=== PATIENT | male | born 1985 | race African-American/Black ===

== ENCOUNTER 2024-12-06 06:34 | Emergency (ER) | payer OTHER ==
[~2024-12-06] VITALS: Ht 172.7 cm; Wt 63.5 kg
[2024-12-06 07:43] VITALS: BP 134/91; TEMP 98.3
[2024-12-06] MEDS ORDERED: GABAPENTIN 100 MG CAPSULE ONE (08:00)
[2024-12-06] MEDS ORDERED: NAPROXEN 250 MG TABLET ONE (08:00)
[2024-12-06] MEDS ORDERED: IBUP-1490 PO (08:01)
[2024-12-06] MEDS ORDERED: ACET325T53 PO (08:01)
[2024-12-06] MEDS ORDERED: GABA-532 PO (08:01)
[2024-12-06] MEDS: NAPROXEN 250 MG TABLET PO ONE (08:03)
[2024-12-06] MEDS: GABAPENTIN 100 MG CAPSULE PO ONE (08:03)
[2024-12-06 08:04] VITALS: O2SAT 98
== END 2024-12-06 08:05 | disposition home or self-care (01) ==
LOC: ER 06:34
DX: M79.2 Neuralgia and neuritis, unspecified (principal); M79.672 Pain in left foot; Z86.73 Personal history of transient ischemic attack (TIA), and cerebral infarction without residual deficits